=== PATIENT | male | born 1960 | race Caucasian/White ===

== ENCOUNTER → 2016-10-30 | Outpatient (CLI) | payer BC ==
--- NOTE | 2016-10-30 14:03 | CT ---
EXAMINATION TYPE: CT abdomen pelvis w con DATE OF EXAM: 10/30/2016 COMPARISON: NONE HISTORY: Diverticulitis. ab pain,cramping,bloading x [address] DLP: 885.90 mGycm CONTRAST: CT scan of the abdomen and pelvis is performed with Oral Contrast and with IV Contrast, patient injec marjorie with 100 mL of Omnipaque 300. FINDINGS: LUNG BASES-: No visible nodule. No infiltrate. LIVER/GB: No calcified gallstones. Several scattered small hepatic cysts. Biliary tree is of normal caliber. PANCREAS: No inflammation. No distinct mass. SPLEEN: No splenic enlargement. No lesion seen. ADRENALS: No nodule. No thickening. KIDNEYS/BLADDER: No hydronephrosis. No nephrolithiasis. No disctinct renal mass. Urinary bladder g rossly unremarkable. BOWEL: Normal appendix. Normal bowel caliber. Borderline stranding adjacent to the proximal sigmoid colon with adjacent diverticula. This may reflect very mild to borderline diverticulitis. No evidence of perforation. No evidence for abscess. GENITAL ORGANS: No gross abnormality. LYMPH NODES: No greater than 1cm abdominal or pelvic lymph nodes are appreciated. AORTA: No significant abnormality. OSSEOUS STRUCTURES: No significant abnormality is seen. OTHER: No significant additional abnormality is seen. IMPRESSION: 1. Borderline stranding adjacent to the proximal sigmoid colon with adjacent diverticula. This may re flect very mild to borderline diverticulitis.
== END | disposition home or self-care (01) ==
LOC: RADCTMAIN 13:24
PROVIDERS: ATTEND Family Medicine
DX: K57.30 Diverticulosis of large intestine without perforation or abscess without bleeding (principal)
CPT/HCPCS: 74177; Q9967

== ENCOUNTER 2017-08-11 08:26 | Day surgery (SDC) | payer BC ==
[2017-08-06 17:19] VITALS: BMI 29.0
[~2017-08-11 08:26] MED LIST: LACTATED RINGERS 1,000 ML IV SCH
[2017-08-11] MEDS ORDERED: LIDOCAINE 1% 20 ML VIAL (10MG/ML) FOR IV START INTRADERMA ONE (09:05)
[2017-08-11 09:06] VITALS: RESP 18; TEMP 98.3
[2017-08-11] MEDS ORDERED: LIDOCAINE 1% INJ 10MG/ML (20 ML MDV) ONE (09:31)
[2017-08-11] MEDS ORDERED: PROPOFOL 10 MG/ML 20 ML VIAL IV ONE (09:31)
--- NOTE | 2017-08-11 10:00 | P.PCN ---
Date of Procedure: 08/11/17 Procedure(s) Performed: Procedure: Total colonoscopy. Preoperative diagnosis: Screening for neoplasia. Postoperative diagnosis: Sigmoid diverticulosis with no evidence of acute diverticulitis, strictures, polyps or cancer. Preparation: GoLYTELY prep. Sedation: Was provided by anesthesia. Brief clinical history: The patient is a 57-year-old male who is referred for this evaluation for screening for neoplasia age being his risk factor. His prior exam was more than 10 years ago. The patient has no significant abdominal symptoms. He gets occasional left lower quadrant abdominal pain and he believes he had a bout of diverticulitis 4-5 months ago. At this time he has no abdominal complaints, bleeding or anemia. Procedure: With the patient on his left lateral decubitus position and after informed consent and adequate sedation, the perianal area was inspected and it did not show any fissures or fistulas. There were no masses felt on digital rectal examination. The Olympus CFQ 160L video colonoscope was then inserted in the rectum in the usual fashion and advanced to the cecum. There were several diverticular orifices seen scattered in the sigmoid but I saw no evidence of acute diverticulitis or strictures. No polyps or tumors were seen the mucosa appeared healthy. I retroflexed the endoscope in the rectum before the endoscope was withdrawn. The patient tolerated the procedure well. Plan: The patient was reassured. Discussed dietary measures. He will follow up with you as planned and I recommended repeat colonoscopy in 10 years.
[2017-08-11 10:26] VITALS: BP 113/78; PULSE 50
== END 2017-08-11 10:36 | disposition home or self-care (01) ==
LOC: ORWHC2ENDO 08:26
DX: Z12.11 Encounter for screening for malignant neoplasm of colon (principal); K57.30 Diverticulosis of large intestine without perforation or abscess without bleeding; K21.9 Gastro-esophageal reflux disease without esophagitis; Z87.891 Personal history of nicotine dependence; Z79.899 Other long term (current) drug therapy; Z91.09 Other allergy status, other than to drugs and biological substances
CPT/HCPCS: J2001; J2704; G0121; 45378

== ENCOUNTER → 2019-01-27 | Outpatient (CLI) | payer BC ==
--- NOTE | 2019-01-27 10:47 | NM ---
Nuclear medicine hepatobiliary scan. HISTORY: Pain. DOSAGE: The patient received 8 ounces of ensure plus and 5 mCi of Technetium 99m Choletec. FINDINGS: The normal hepatic extraction heterogeneous which may be artifactual. The gallbladder is s een by one minutes. There is biliary to bowel clearance is delayed and not seen at 60 minutes with c ertainty which is a nonspecific finding. Ejection fraction is 76%. IMPRESSION: 1. Ejection fraction of 76% can occasionally be associated with hyperdynamic gallbladder correlate cl inically. 2. Heterogeneous hepatic extraction. Recommend follow-up ultrasound.
== END | disposition home or self-care (01) ==
LOC: RADNMMAIN 06:41
PROVIDERS: ATTEND Internal Medicine Gastroenterology
DX: R10.13 Epigastric pain (principal)
CPT/HCPCS: 78226; A9537

== ENCOUNTER 2019-02-09 11:50 | Emergency (ER) | payer BC ==
[2019-02-09 11:59] VITALS: RESP 18
[2019-02-09] MEDS ORDERED: methylPREDNISolone SOD SUCCI 125 MG/2 ML VIAL IV STA (12:17)
[2019-02-09] MEDS ORDERED: IPRATROPIUM-ALBUTEROL 3 ML NEB INHALATION STA (12:17)
[2019-02-09] MEDS ORDERED: SODIUM CHLORIDE 0.9% 1,000 ML IV STA ×2 (12:17)
--- NOTE | 2019-02-09 12:44 | ED ---
General Adult HPI - General Chief complaint: Shortness of Breath Stated complaint: Pneumonia Time Seen by Provider: 02/09/19 12:08 Source: patient, RN notes reviewed, old records reviewed Mode of arrival: ambulatory Limitations: no limitations - History of Present Illness Initial comments: 4-year-old male presents today for cough congestion shortness of breath. Patient reports that he isn't having worsening cough since February 01. Patient states that he was initially started on amoxicillin. 3 days later was switched to Levaquin. He has been on that for 4 days but continues to have a cough today. The Patient states that he's had no recorded fevers or chills. He does reports a productive cough. Nonsmoker. - Related Data Home Medications Medication Instructions Recorded Confirmed Fexofenadine HCl [Rosa Isela Allergy] 180 mg PO DAILY PRN 08/06/17 08/11/17 Ranitidine HCl [Zantac] 150 mg PO BID PRN 08/06/17 08/11/17 Previous Rx's Medication Instructions Recorded Albuterol Inhaler [Ventolin Hfa 1 - 2 puff INHALATION RT-Q6H PRN 02/09/19 Inhaler] #1 inhaler predniSONE 10 mg PO DAILY #15 tab 02/09/19 Allergies Allergy/AdvReac Type Severity Reaction Status Date / Time weed pollen Allergy RUNNY EYES Verified 08/11/17 08:56 AND SNEEZING Review of Systems ROS Statement: Those systems with pertinent positive or pertinent negative responses have been documented in the HPI. ROS Other: All systems not noted in ROS Statement are negative. Past Medical History Past Medical History: GERD/Reflux Additional Past Medical History / Comment(s): seasonal allergies, hx. diverticulitis, occasional bloating, hx. of spontaneous pneumothorax when younger-surg. to repair, hx. bronchitis, hypoglycemia History of Any Multi-Drug Resistant Organisms: None Reported Past Surgical History: Tonsillectomy Additional Past Surgical History / Comment(s): cyst removed from testicle, repair of pneumothorax x2, colonoscopy Past Anesthesia/Blood Transfusion Reactions: No Reported Reaction Past Psychological History: No Psychological Hx Reported Smoking Status: Former smoker Past Alcohol Use History: Rare Past Drug Use History: None Reported - Past Family History Mother Family Medical History: Cancer Father Family Medical History: Cancer General Exam - General Exam Comments Initial Comments: 4-year-old male. Alert and oriented 3. No distress. Limitations: no limitations General appearance: alert, in no apparent distress Head exam: Present: atraumatic, normocephalic, normal inspection Eye exam: Present: normal appearance, PERRL, EOMI. Absent: scleral icterus, conjunctival injection, periorbital swelling ENT exam: Present: normal exam, mucous membranes moist Neck exam: Present: normal inspection. Absent: tenderness, meningismus, lymphadenopathy Respiratory exam: Present: normal lung sounds bilaterally, wheezes. Absent: respiratory distress, rales, rhonchi, stridor Cardiovascular Exam: Present: regular rate, normal rhythm, normal heart sounds. Absent: systolic murmur, diastolic murmur, rubs, gallop, clicks GI/Abdominal exam: Present: soft, normal bowel sounds. Absent: distended, tenderness, guarding, rebound, rigid Neurological exam: Present: alert, oriented X3, CN II-XII intact Psychiatric exam: Present: normal affect, normal mood Skin exam: Present: warm, dry, intact, normal color. Absent: rash Course Vital Signs 02/09/19 02/09/19 02/09/19 11:55 12:24 12:33 Temperature 97.7 F Pulse Rate 73 61 66 Respiratory 18 Rate Blood Pressure 147/97 O2 Sat by Pulse 99 Oximetry 02/09/19 02/09/19 13:00 13:30 Temperature Pulse Rate 64 65 Respiratory 18 18 Rate Blood Pressure 128/92 135/82 O2 Sat by Pulse 97 96 Oximetry EKG Findings - EKG Comments: EKG Findings:: EKG shows sinus regarding, otherwise normal EKG. Ventricular rate 58 bpm. Panel was 180 ms. QS duration 76 ms. QT QTc is 420/414 ms. Medical Decision Making - Medical Decision Making Patient is a 4-year-old male presents today with cough congestion. Patient's vital signs are stable. Afebrile. He's been on Levaquin for the past few days for a cough. This time his lungs did show some mild wheezing. Given DuoNeb and slight ventral. This time patient's labwork was unremarkable. Chest x-ray shows no pneumonia and underlying emphysema changes and postsurgical changes. He did have history of left lung surgery for spontaneous or lethargic and his younger. Patient this time will continue Levaquin. Discussed using prednisone orally as well as DuoNeb treatments at home. Patient is agreeable to discharge and close follow up with his primary care doctor. All questions were answered. - Lab Data Result diagrams: 02/09/19 13:00 02/09/19 13:00 Lab Results 02/09/19 02/09/19 02/09/19 Range/Units 13:00 13:00 13:00 WBC 10.1 (3.8-10.6) k/uL RBC 4.93 (4.30-5.90) m/uL Hgb 15.2 (13.0-17.5) gm/dL Hct 45.9 (39.0-53.0) % MCV 93.0 (80.0-100.0) fL MCH 30.9 (25.0-35.0) pg MCHC 33.2 (31.0-37.0) g/dL RDW 12.0 (11.5-15.5) % Plt Count 266 (150-450) k/uL Neutrophils % 74 % Lymphocytes % 15 % Monocytes % 6 % Eosinophils % 1 % Basophils % 2 % Neutrophils # 7.4 (1.3-7.7) k/uL Lymphocytes # 1.6 (1.0-4.8) k/uL Monocytes # 0.6 (0-1.0) k/uL Eosinophils # 0.1 (0-0.7) k/uL Basophils # 0.2 (0-0.2) k/uL PT 11.2 (9.0-12.0) sec INR 1.1 (<1.2) APTT 25.4 (22.0-30.0) sec Sodium 138 (137-145) mmol/L Potassium 4.5 (3.5-5.1) mmol/L Chloride 105 (98-107) mmol/L Carbon Dioxide 25 (22-30) mmol/L Anion Gap 8 mmol/L BUN 14 (9-20) mg/dL Creatinine 0.73 (0.66-1.25) mg/dL Est GFR (CKD-EPI)AfAm >90 (>60 ml/min/1.73 sqM) Est GFR (CKD-EPI)NonAf >90 (>60 ml/min/1.73 sqM) Glucose 106 H (74-99) mg/dL Calcium 9.9 (8.4-10.2) mg/dL Magnesium 2.0 (1.6-2.3) mg/dL Total Bilirubin 0.9 (0.2-1.3) mg/dL AST 30 (17-59) U/L ALT 17 (4-49) U/L Alkaline Phosphatase 72 (38-126) U/L Troponin I (0.000-0.034) ng/mL Total Protein 7.3 (6.3-8.2) g/dL Albumin 4.6 (3.5-5.0) g/dL 02/09/19 Range/Units 13:00 WBC (3.8-10.6) k/uL RBC (4.30-5.90) m/uL Hgb (13.0-17.5) gm/dL Hct (39.0-53.0) % MCV (80.0-100.0) fL MCH (25.0-35.0) pg MCHC (31.0-37.0) g/dL RDW (11.5-15.5) % Plt Count (150-450) k/uL Neutrophils % % Lymphocytes % % Monocytes % % Eosinophils % % Basophils % % Neutrophils # (1.3-7.7) k/uL Lymphocytes # (1.0-4.8) k/uL Monocytes # (0-1.0) k/uL Eosinophils # (0-0.7) k/uL Basophils # (0-0.2) k/uL PT (9.0-12.0) sec INR (<1.2) APTT (22.0-30.0) sec Sodium (137-145) mmol/L Potassium (3.5-5.1) mmol/L Chloride (98-107) mmol/L Carbon Dioxide (22-30) mmol/L Anion Gap mmol/L BUN (9-20) mg/dL Creatinine (0.66-1.25) mg/dL Est GFR (CKD-EPI)AfAm (>60 ml/min/1.73 sqM) Est GFR (CKD-EPI)NonAf (>60 ml/min/1.73 sqM) Glucose (74-99) mg/dL Calcium (8.4-10.2) mg/dL Magnesium (1.6-2.3) mg/dL Total Bilirubin (0.2-1.3) mg/dL AST (17-59) U/L ALT (4-49) U/L Alkaline Phosphatase (38-126) U/L Troponin I <0.012 (0.000-0.034) ng/mL Total Protein (6.3-8.2) g/dL Albumin (3.5-5.0) g/dL - Radiology Data Radiology results: report reviewed Chest x-ray shows mild hyperinflation may reflect underlying emphysema. Surgical changes in the lung volume loss in the left upper lobe. No definite acute process. Disposition Clinical Impression: Bronchitis Disposition: HOME SELF-CARE Condition: Good Instructions (If sedation given, give patient instructions): Acute Bronchitis (ED) Additional Instructions: Patient advised to use inhalers as prescribed and follow-up with her primary care doctor in the next 1-2 days. Continue Levaquin. Follow-up with PCP. Prescriptions: predniSONE 10 mg PO DAILY #15 tab Albuterol Inhaler [Ventolin Hfa Inhaler] 1 - 2 puff INHALATION RT-Q6H PRN #1 inhaler PRN Reason: Shortness Of Breath Is patient prescribed a controlled substance at d/c from ED?: No Referrals: Kale Wing MD [Primary Care Provider] - 1-2 days Time of Disposition: 14:39
--- NOTE | 2019-02-09 13:30 | XR ---
EXAMINATION TYPE: XR chest 2V DATE OF EXAM: 02/09/2019 COMPARISON: None HISTORY: 58-year-old male cough, shortness breath, difficulty breathing TECHNIQUE: PA and lateral views FINDINGS: Heart normal size. Mild elongation thoracic aorta. Stable line at the medial left upper lobe and juxt aphrenic peak sign at the left hemidiaphragm compatible with upper lobe volume loss. No consolidation or pleural effusion. Mild hyperinflation. IMPRESSION: Mild hyperinflation may reflect underlying emphysema. Surgical changes and volume loss in the left up per lobe. No definite acute process.
[2019-02-09 13:41] LABS: Basophils # (A) 0.2 k/uL (0-0.2); Basophils % (A) 2 %; Eosinophils # (A) 0.1 k/uL (0-0.7); Eosinophils % (A) 1 %; HCT 45.9 % (39.0-53.0); HGB 15.2 gm/dL (13.0-17.5); Lymphocytes # (A) 1.6 k/uL (1.0-4.8); Lymphocytes % (A) 15 %; MCH 30.9 pg (25.0-35.0); MCHC 33.2 g/dL (31.0-37.0); Mean Platelet Volume 6.9; Monocytes # (A) 0.6 k/uL (0-1.0); Monocytes % (A) 6 %; Neutrophils # (A) 7.4 k/uL (1.3-7.7); Neutrophils % (A) 74 %; Platelet Count 266 k/uL (150-450); RBC 4.93 m/uL (4.30-5.90); WBC 10.1 k/uL (3.8-10.6)
[2019-02-09 13:49] LABS: ALT 17 U/L (4-49); AST 30 U/L (17-59); African American GFR (CKD) >90 (>60 ml/min/1.73 sqM); Albumin 4.6 g/dL (3.5-5.0); Alkaline Phosphatase 72 U/L (38-126); Anion Gap 8 mmol/L; Blood Urea Nitrogen 14 mg/dL (9-20); Calcium 9.9 mg/dL (8.4-10.2); Carbon Dioxide 25 mmol/L (22-30); Chloride 105 mmol/L (98-107); Glucose 106 mg/dL (74-99); Non-African American GFR(CKD) >90 (>60 ml/min/1.73 sqM); Sodium 138 mmol/L (137-145); Total Bilirubin 0.9 mg/dL (0.2-1.3); Total Protein 7.3 g/dL (6.3-8.2)
[2019-02-09 13:58] LABS: Potassium 4.5 mmol/L (3.5-5.1)
[2019-02-09 14:02] LABS: INR 1.1 (<1.2); Partial Thromboplastin Time 25.4 sec (22.0-30.0); Prothrombin Time 11.2 sec (9.0-12.0)
[2019-02-09 15:01] VITALS: BP 122/84; PULSE 62; TEMP 97.6
== END 2019-02-09 14:59 | disposition home or self-care (01) ==
LOC: EC 11:50
DX: J40 Bronchitis, not specified as acute or chronic (principal); Z98.890 Other specified postprocedural states; Z87.09 Personal history of other diseases of the respiratory system; Z87.891 Personal history of nicotine dependence; Z91.048 Other nonmedicinal substance allergy status
CPT/HCPCS: 99285; 96374; 96361 ×2; 36415; 94640; 93005; 80053; 83735; 84484; 85025; 85610; 85730; 87040; 71046; J2930

== ENCOUNTER → 2020-06-22 | Outpatient (CLI) | payer BC ==
--- NOTE | 2020-06-22 16:24 | CT ---
EXAMINATION TYPE: CT chest w con DATE OF EXAM: 06/22/2020 COMPARISON: None HISTORY: Intermitten chest pain x4-[address] DLP: 304.4 mGycm Automated exposure control for dose reduction was used. CONTRAST: Performed with IV Contrast, patient injected with 100ml mL of Isovue 300. Images obtained from the thoracic inlet to the diaphragm with IV contrast. The heart size is normal. There is no pericardial effusion. There is no pleural effusion. There are no hilar masses. There is n o mediastinal adenopathy. There is minimal atheromatous change in the thoracic aorta. There is 4.2 cm aneurysm of the ascending aorta. Thoracic vertebra have normal alignment. There is no compression fracture. Sternum is intact There are mild emphysematous changes at the lung apices. There is minimal pleural thickening at the l mary lou apices. There is no evidence of a pulmonary mass. There is minimal reticular and nodular density in the lingula left upper lobe. This is likely inflammatory. I see no suspicious pulmonary mass. The upper abdominal soft tissues show 1 cm cyst in the superior right lobe of the liver. IMPRESSION: Mild emphysema. 4.2 cm thoracic aortic aneurysm. No dissection. No evidence of pulmonary embolism. No suspicious pulmonary mass.
== END | disposition home or self-care (01) ==
LOC: RADCTMAIN 15:28
PROVIDERS: ATTEND Internal Medicine Critical Care Medicine
DX: J43.9 Emphysema, unspecified (principal); I71.2 Thoracic aortic aneurysm, without rupture
CPT/HCPCS: 71260; Q9967

== ENCOUNTER → 2021-04-17 | Outpatient (CLI) | payer BC ==
--- NOTE | 2021-04-17 08:14 | CT ---
EXAMINATION TYPE: CT angio chest DATE OF EXAM: 04/17/2021 COMPARISON: 06/22/2020 HISTORY: thoracic aortic aneurysm CT DLP: 815.6 mGycm CONTRAST: CTA thoracic aorta with 3-D reconstruction is performed and with IV Contrast, patient injected with 1 00 mL of Isovue 370. Contrast CTA of the thoracic aorta was performed from the lung apex through the upper abdomen. 3D re construction imaging obtained at a separate workstation. CT Chest: THORACIC AORTA: Ascending thoracic aortic aneurysm measuring 4.3 cm in AP dimension versus prior coco urement of 4.2 cm. Mild atheromatous changes seen. There is no evidence for dissection or periaortic collection. LUNGS: The lungs are clear and free of infiltrate or atelectasis. No pulmonary nodule or mass is det ected. No pleural effusion or CT evidence of interstitial lung disease. MEDIASTINUM: No evidence for mediastinal hematoma. The heart is not enlarged. No evidence for med iastinal mass or adenopathy. Small hiatal hernia noted. HILAR STRUCTURES: No evidence for mass. No hilar adenopathy is appreciated. OTHER: No significant abnormality. IMPRESSION- Ascending thoracic aortic aneurysm measuring 4.3 cm in AP dimension versus prior measurement of 4.2 c m.
== END | disposition home or self-care (01) ==
LOC: RADCTMAIN 06:51
PROVIDERS: ATTEND Family Medicine
DX: I71.2 Thoracic aortic aneurysm, without rupture (principal)
CPT/HCPCS: 71275; Q9967

== ENCOUNTER → 2021-06-10 | Outpatient (CLI) | payer BC ==
--- NOTE | 2021-06-11 17:58 | CA ---
Transthoracic Echo Report Name: Yunier Ng Age: 60 Gender: M : 1960 Exam Date: 06/10/2021 14:59 Exam Location: [facility] Ht (in): 71 Wt (lb): 210 Ordering Physician: Talon Gardner MD Attending/Referring Phys: Volcanology Teacher Judi Shepard RDCS Procedure CPT: Indications: I25.3 Cardiac Hx: Technical Quality: Good Contrast 1: Total Dose (mL): Contrast 2: Total Dose (mL): MEASUREMENTS (Male / Female) Normal Values 2D ECHO LV Diastolic Diameter PLAX 5.0 cm 4.2 - 5.9 / 3.9 - 5.3 cm LV Systolic Diameter PLAX 3.3 cm IVS Diastolic Thickness 1.0 cm 0.6 - 1.0 / 0.6 - 0.9 cm LVPW Diastolic Thickness 1.1 cm 0.6 - 1.0 / 0.6 - 0.9 cm LV Relative Wall Thickness 0.4 RV Internal Dim ED PLAX 2.5 cm LA Volume 30.5 cm 18 - 58 / 22 - 52 cm M-MODE Aortic Root Diameter MM 4.3 cm LA Systolic Diameter MM 2.5 cm LA Ao Ratio MM 0.6 MV E Point Septal Separation 1.3 cm AV Cusp Separation MM 2.5 cm DOPPLER AV Peak Velocity 121.5 cm/s AV Peak Gradient 5.9 mmHg MV Area PHT 2.7 cm MR Peak Velocity 89.6 cm/s MR Peak Gradient 3.2 mmHg Mitral E Point Velocity 58.4 cm/s Mitral A Point Velocity 83.5 cm/s Mitral E to A Ratio 0.7 MV Deceleration Time 281.9 ms MV E' Velocity 4.7 cm/s Mitral E to MV E' Ratio 12.3 TR Peak Velocity 156.3 cm/s TR Peak Gradient 9.8 mmHg Right Ventricular Systolic Press 14.1 mmHg FINDINGS Left Ventricle Normal left ventricular size, wall thickness, systolic function with no obvious regional wall motion abnormalities. Normal left ventricular diastolic filling pattern for age. The ejection fraction is visually estimated at 55-60 %. Right Ventricle The right ventricle is normal in size and function. Right Atrium The right atrium is normal in size. Left Atrium The left atrium is normal in size. Mitral Valve Structurally normal mitral valve without significant stenosis or prolapse. There is a trace of mitral regurgitation. Aortic Valve Structurally normal aortic valve without significant sclerosis or stenosis. There is no aortic regurgitation. Tricuspid Valve Structurally normal tricuspid valve without significant stenosis. Pulmonary artery systolic pressure is normal. Trace tricuspid regurgitation. Pulmonic Valve Structurally normal pulmonic valve without significant stenosis. There is no pulmonic regurgitation. Pericardium Normal pericardium without effusion. Aorta Aortic dilatation measuring 4.3 cm. CONCLUSIONS Normal LV size and systolic function. Mild mitral and tricuspid insufficiency. No pericardial effusion Previewed by: Dr. Nj Saunders MD (Electronically Signed) Final Date: 11 June 2021 17:57
== END | disposition home or self-care (01) ==
LOC: RADECHMAIN 14:49
PROVIDERS: ATTEND Thoracic Surgery (Cardiothoracic Vascular Surgery)
DX: I08.1 Rheumatic disorders of both mitral and tricuspid valves (principal)
CPT/HCPCS: 93306

== ENCOUNTER → 2023-05-01 | Outpatient (CLI) | payer BC ==
--- NOTE | 2023-05-01 10:21 | CT ---
Exam: CT Angiography of the Chest. Date: 05/01/2023. Comparison: Multiple previous most recent from 04/21/2022. History: Follow-up for aneurysm. Technique: CT examination of the chest was performed following the intravenous administration of 100 mL of Isovue-370. CT dose lowering techniques were used, to include: automated exposure control, adju stment for patient size, and/or use of iterative reconstruction. FINDINGS: Mediastinum and Bess: There is no axillary, mediastinal or hilar lymphadenopathy. Pleural and Pericardial spaces: There are no pleural or pericardial effusions. Upper Abdomen: The visualized upper abdomen is unremarkable. Cardiovascular: There is dilation of ascending thoracic aorta up to 4.4 cm in diameter. There is no e vidence of aortic dissection. Pulmonary Artery: There are no filling defects in the pulmonary arteries. Lung Parenchyma and Airways: There is mild diffuse centrilobular emphysema. Bones: No fracture or aggressive osseous lesion. IMPRESSION: 1. Unchanged dilation of the ascending thoracic aorta up to 4.4 cm. 2. No evidence of aortic dissection. 3. No evidence of pneumonia, pleural or pericardial effusions. 4. Unchanged small pulmonary nodules. 5. Unchanged emphysema.
== END | disposition home or self-care (01) ==
LOC: RADCTMAIN 09:23
PROVIDERS: ATTEND Thoracic Surgery (Cardiothoracic Vascular Surgery)
DX: J43.2 Centrilobular emphysema (principal); R91.8 Other nonspecific abnormal finding of lung field; I71.20 Thoracic aortic aneurysm, without rupture, unspecified
CPT/HCPCS: 71275; Q9967

== ENCOUNTER 2023-12-22 11:09 | Emergency (ER) | payer MEDICARE, BC ==
--- NOTE | 2023-12-22 11:52 | ED ---
General Adult HPI - General Chief complaint: Dizziness Stated complaint: dizzy/hypertension Time Seen by Provider: 12/22/23 11:36 Source: patient, family, EMS, RN notes reviewed Mode of arrival: EMS Limitations: no limitations - History of Present Illness Initial comments: Patient is a 63-year-old male presenting to the emergency department with lightheadedness. Onset of symptoms was prior to arrival. Patient was driving and suddenly felt extremely lightheaded. 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 Patient did go to his doctor's office and blood pressure was high and he was advised to come to the emergency department, 180/120. Patient states lightheadedness has near resolved and is only mild at this time. Patient denies any confusion or speech problems. No weakness. No history of similar symptoms previously. - Related Data Home Medications Medication Instructions Recorded Confirmed ALPRAZolam [Xanax] 0.25 mg PO QID PRN 12/22/23 12/22/23 Albuterol Inhaler [Ventolin Hfa 2 puff INHALATION RT-Q6H PRN 12/22/23 12/22/23 Inhaler] Ascorbic Acid [Vitamin C] 1,000 mg PO DAILY 12/22/23 12/22/23 Aspirin EC [Ecotrin Low Dose] 81 mg PO DAILY 12/22/23 12/22/23 Cholecalciferol [Vitamin D3 (25 25 mcg PO DAILY 12/22/23 12/22/23 Mcg = 1000 Iu)] Diclofenac Sodium [Voltaren] 75 mg PO BID PRN 12/22/23 12/22/23 Dicyclomine [Bentyl] 10 - 20 mg PO Q6H PRN 12/22/23 12/22/23 Famotidine [Pepcid] 20 mg PO DAILY PRN 12/22/23 12/22/23 Fluticasone Nasal [place] [Flonase 1 spray EA NOSTRIL DAILY PRN 12/22/23 12/22/23 Nasal [place]] Fluticasone/Umeclidin/Vilanter 1 puff INHALATION RT-DAILY 12/22/23 12/22/23 [Trelegy Ellipta 200-62.5-25] Indomethacin [Indocin] 50 mg PO TID PRN 12/22/23 12/22/23 Multivit-Min/FA/Lycopen/Lutein 1 tab PO DAILY 12/22/23 12/22/23 [Centrum Silver Tablet] Omeprazole [PriLOSEC] 40 mg PO DAILY PRN 12/22/23 12/22/23 Previous Rx's Medication Instructions Recorded amLODIPine [Norvasc] 5 mg PO DAILY #14 tab 12/22/23 Allergies Allergy/AdvReac Type Severity Reaction Status Date / Time weed pollen Allergy RUNNY EYES Verified 12/22/23 12:06 AND SNEEZING Review of Systems ROS Statement: Those systems with pertinent positive or pertinent negative responses have been documented in the HPI. ROS Other: All systems not noted in ROS Statement are negative. Constitutional: Denies: fever Eyes: Denies: eye pain ENT: Denies: ear pain Respiratory: Denies: cough, dyspnea Cardiovascular: Denies: chest pain Endocrine: Denies: fatigue Gastrointestinal: Denies: abdominal pain Neurological: Denies: headache, weakness Past Medical History Past Medical History: COPD, GERD/Reflux Additional Past Medical History / Comment(s): seasonal allergies, hx. diver ticulitis, occasional bloating, hx. of spontaneous pneumothorax when younger- surg. to repair, hx. bronchitis, hypoglycemia, gout, arthritis History of Any Multi-Drug Resistant Organisms: None Reported Past Surgical History: Tonsillectomy Additional Past Surgical History / Comment(s): cyst removed from testicle, repair of pneumothorax x2, colonoscopy, fused vertabrea Past Anesthesia/Blood Transfusion Reactions: No Reported Reaction Past Psychological History: Anxiety Smoking Status: Former smoker Past Alcohol Use History: Rare Past Drug Use History: None Reported - Past Family History Mother Family Medical History: Cancer Father Family Medical History: Cancer General Exam Limitations: no limitations General appearance: alert, in no apparent distress Head exam: Present: normocephalic Eye exam: Present: normal appearance, PERRL, EOMI Neck exam: Present: normal inspection. Absent: tenderness Respiratory exam: Present: normal lung sounds bilaterally Cardiovascular Exam: Present: regular rate, normal rhythm Expanded Peripheral pulses: 2+: Radial (R), Radial (L), Dorsalis Pedis (R), Dorsalis Pedis (L) GI/Abdominal exam: Present: soft. Absent: tenderness Extremities exam: Present: normal inspection Neurological exam: Present: alert, CN II-XII intact. Absent: motor sensory deficit Expanded Neurological exam: Present: protecting the airway Speech: Present: fluid speech Cranial nerves: EOM's Intact: Normal Motor strength exam: RUE: 5, LUE: 5, RLE: 5, LLE: 5 Eye Response: (4) open spontaneously Motor Response: (6) obeys commands Verbal Response: (5) oriented Psychiatric exam: Present: normal affect, normal mood Skin exam: Present: normal color Course Vital Signs 12/22/23 12/22/23 12/22/23 11:10 12:30 13:50 Temperature 97.7 F 97.4 F L 97.0 F L Pulse Rate 61 60 60 Respiratory 20 16 16 Rate Blood Pressure 157/104 146/92 158/99 O2 Sat by Pulse 98 97 98 Oximetry 12/22/23 14:29 Temperature Pulse Rate 54 L Respiratory 18 Rate Blood Pressure 155/96 O2 Sat by Pulse 98 Oximetry EKG Findings - EKG Results: EKG: interpreted by LOULOU, sinus rhythm, normal axis, normal QRS, normal ST/T EKG shows: bradycardia Medical Decision Making - Medical Decision Making Was pt. sent in by a medical professional or institution (, PA, BOX CLOSING MACHINE OPERATOR, urgent care, hospital, or longterm...) When possible be specific @ -Patient was sent in by primary care physician Did you speak to anyone other than the patient for history (EMS, parent, family, police, friend...)? What history was obtained from this source @ - is present and helps provide history including blood pressure reading Did you review nursing and triage notes (agree or disagree)? Why? @ -I reviewed and agree with nursing and triage notes Were old charts reviewed (outside hosp., previous admission, EMS record, old EKG, old radiological studies, urgent care reports/EKG's, longterm records)? Report findings @ -No old charts were reviewed Differential Diagnosis (chest pain, altered mental status, abdominal pain women, abdominal pain men, vaginal bleeding, weakness, fever, dyspnea, syncope, headache, dizziness, GI bleed, back pain, seizure, CVA, palpatations, mental he alth, musculoskeletal)? @ -Differential Dizziness: Benign paroxysmal positional Vertigo, Meniere's disease, otitis media, acoustic neuroma, vertebrobasilar insufficiency, cerebellar stroke, encephalitis, hypovolemic, arrhythmia, coronary artery syndrome, anemia, this is not meant to be an all-inclusive list EKG interpreted by me (3pts min.). @ -As above X-rays interpreted by me (1pt min.). @ -Chest x-ray shows no acute process CT interpreted by me (1pt min.). @ -CT scan of the brain does not reveal acute abnormality U/S interpreted by me (1pt. min.). @ -None done What testing was considered but not performed or refused? (CT, X-rays, U/S, labs)? Why? @ -None What meds were considered but not given or refused? Why? @ -None Did you discuss the management of the patient with other professionals (professionals i.e. Dr., PA, BOX CLOSING MACHINE OPERATOR, lab, RT, psych nurse, social work administrator, clinical nursing assistant, teacher, police officer crime prevention, nurse outreach case manager)? Give summary @ -No Was smoking cessation discussed for >3mins.? @ -No Was critical care preformed (if so, how long)? @ -No Were there social determinants of health that impacted care today? How? (Homelessness, low income, unemployed, alcoholism, drug addiction, transp ortation, low edu. Level, literacy, decrease access to med. care, fpc, rehab)? @ -No Was there de-escalation of care discussed even if they declined (Discuss DNR or withdrawal of care, Hospice)? DNR status @ -No What co-morbidities impacted this encounter? (DM, HTN, Smoking, COPD, CAD, Cancer, CVA, ARF, Chemo, Hep., AIDS, mental health diagnosis, sleep apnea, morbid obesity)? @ -None Was patient admitted / discharged? Hospital course, mention meds given and route, prescriptions, significant lab abnormalities, going to OR and other pertinent info. @ -Patient presents with episode of lightheadedness with hypertension. Blood pressure has improved in the emergency department. Patient feeling much better and is able to ambulate without any difficulty. Patient will be discharged with recommended follow-up with his primary care physician. Patient will be provided antihypertensive in the meantime until follow-up. Patient updated and does demonstrate understanding Undiagnosed new problem with uncertain prognosis? @ -No Drug Therapy requiring intensive monitoring for toxicity (Heparin, Nitro, Insulin, Cardizem)? @ -No Were any procedures done? @ -No Diagnosis/symptom? @ -Lightheadedness, hypertension Acute, or Chronic, or Acute on Chronic? @ -Acute, acute Uncomplicated (without systemic symptoms) or Complicated (systemic symptoms)? @ -Default Side effects of treatment? @ -No Exacerbation, Progression, or Severe Exacerbation? @ -No Poses a threat to life or bodily function? How? (Chest pain, USA, MD, pneumonia, PE, COPD, DKA, ARF, appy, cholecystitis, CVA, Diverticulitis, Homicidal, Suicidal, threat to staff... and all critical care pts) @ -No - Lab Data Result diagrams: 12/22/23 12:30 12/22/23 12:30 Lab Results 12/22/23 12/22/23 12/22/23 Range/Units 12:30 12:30 12:30 WBC 9.9 (3.8-10.6) k/uL RBC 4.45 (4.30-5.90) m/uL Hgb 13.2 (13.0-17.5) gm/dL Hct 41.2 (39.0-53.0) % MCV 92.6 (80.0-100.0) fL MCH 29.8 (25.0-35.0) pg MCHC 32.1 (31.0-37.0) g/dL RDW 13.5 (11.5-15.5) % Plt Count 189 (150-450) k/uL MPV 6.8 Neutrophils % 83 % Lymphocytes % 8 % Monocytes % 6 % Eosinophils % 2 % Basophils % 1 % Neutrophils # 8.2 H (1.3-7.7) k/uL Lymphocytes # 0.8 L (1.0-4.8) k/uL Monocytes # 0.6 (0-1.0) k/uL Eosinophils # 0.2 (0-0.7) k/uL Basophils # 0.1 (0-0.2) k/uL PT 11.2 (10.0-12.5) sec INR 1.0 (<1.2) APTT 24.4 (22.0-30.0) sec Sodium 138 (137-145) mmol/L Potassium 4.3 (3.5-5.1) mmol/L Chloride 107 (98-107) mmol/L Carbon Dioxide 24 (22-30) mmol/L Anion Gap 7 mmol/L BUN 17 (9-20) mg/dL Creatinine 0.83 (0.66-1.25) mg/dL Est GFR (CKD-EPI)AfAm >90 (>60 ml/min/1.73 sqM) Est GFR (CKD-EPI)NonAf >90 (>60 ml/min/1.73 sqM) Glucose 104 H (74-99) mg/dL Plasma Lactic Acid Yoel (0.7-2.0) mmol/L Calcium 9.5 (8.4-10.2) mg/dL Total Bilirubin 0.5 (0.2-1.3) mg/dL AST 22 (17-59) U/L ALT 21 (4-49) U/L Alkaline Phosphatase 77 (38-126) U/L Troponin I (0.000-0.034) ng/mL Total Protein 6.6 (6.3-8.2) g/dL Albumin 4.0 (3.5-5.0) g/dL 12/22/23 12/22/23 Range/Units 12:30 12:30 WBC (3.8-10.6) k/uL RBC (4.30-5.90) m/uL Hgb (13.0-17.5) gm/dL Hct (39.0-53.0) % MCV (80.0-100.0) fL MCH (25.0-35.0) pg MCHC (31.0-37.0) g/dL RDW (11.5-15.5) % Plt Count (150-450) k/uL MPV Neutrophils % % Lymphocytes % % Monocytes % % Eosinophils % % Basophils % % Neutrophils # (1.3-7.7) k/uL Lymphocytes # (1.0-4.8) k/uL Monocytes # (0-1.0) k/uL Eosinophils # (0-0.7) k/uL Basophils # (0-0.2) k/uL PT (10.0-12.5) sec INR (<1.2) APTT (22.0-30.0) sec Sodium (137-145) mmol/L Potassium (3.5-5.1) mmol/L Chloride (98-107) mmol/L Carbon Dioxide (22-30) mmol/L Anion Gap mmol/L BUN (9-20) mg/dL Creatinine (0.66-1.25) mg/dL Est GFR (CKD-EPI)AfAm (>60 ml/min/1.73 sqM) Est GFR (CKD-EPI)NonAf (>60 ml/min/1.73 sqM) Glucose (74-99) mg/dL Plasma Lactic Acid Yoel 1.3 (0.7-2.0) mmol/L Calcium (8.4-10.2) mg/dL Total Bilirubin (0.2-1.3) mg/dL AST (17-59) U/L ALT (4-49) U/L Alkaline Phosphatase (38-126) U/L Troponin I <0.012 (0.000-0.034) ng/mL Total Protein (6.3-8.2) g/dL Albumin (3.5-5.0) g/dL Disposition Clinical Impression: Lightheadedness, Hypertension Disposition: HOME SELF-CARE Condition: Stable Instructions (If sedation given, give patient instructions): Dizziness (ED) Additional Instructions: Please do follow-up with your primary care physician in the next couple of days for recheck. Prescription for blood pressure medicine sent to your pharmacy until you are able to follow-up with your doctor. Return for increased blood pressure, dizziness, passing out, confusion, weakness, worsening symptoms or any other concerns. Prescriptions: amLODIPine [Norvasc] 5 mg PO DAILY #14 tab Is patient prescribed a controlled substance at d/c from ED?: No Referrals: Kale Wing MD [Primary Care Provider] - 1-2 days Time of Disposition: 14:46
[2023-12-22] MEDS: MECLIZINE 12.5 MG TAB PO STA (12:22)
[2023-12-22 12:46] LABS: Basophils # (A) 0.1 k/uL (0-0.2); Basophils % (A) 1 %; Eosinophils # (A) 0.2 k/uL (0-0.7); Eosinophils % (A) 2 %; HCT 41.2 % (39.0-53.0); HGB 13.2 gm/dL (13.0-17.5); Lymphocytes # (A) 0.8 k/uL (1.0-4.8); Lymphocytes % (A) 8 %; MCH 29.8 pg (25.0-35.0); MCHC 32.1 g/dL (31.0-37.0); MCV 92.6 fL (80.0-100.0); Mean Platelet Volume 6.8; Monocytes # (A) 0.6 k/uL (0-1.0); Monocytes % (A) 6 %; Neutrophils # (A) 8.2 k/uL (1.3-7.7); Neutrophils % (A) 83 %; Platelet Count 189 k/uL (150-450); RBC 4.45 m/uL (4.30-5.90); RDW 13.5 % (11.5-15.5); WBC 9.9 k/uL (3.8-10.6)
[2023-12-22 12:49] LABS: ALT 21 U/L (4-49); AST 22 U/L (17-59); African American GFR (CKD) >90 (>60 ml/min/1.73 sqM); Alkaline Phosphatase 77 U/L (38-126); Anion Gap 7 mmol/L; Blood Urea Nitrogen 17 mg/dL (9-20); Calcium 9.5 mg/dL (8.4-10.2); Carbon Dioxide 24 mmol/L (22-30); Chloride 107 mmol/L (98-107); Glucose 104 mg/dL (74-99); Non-African American GFR(CKD) >90 (>60 ml/min/1.73 sqM); Potassium 4.3 mmol/L (3.5-5.1); Sodium 138 mmol/L (137-145); Total Bilirubin 0.5 mg/dL (0.2-1.3); Total Protein 6.6 g/dL (6.3-8.2)
--- NOTE | 2023-12-22 12:59 | XR ---
EXAMINATION TYPE: XR chest 2V DATE OF EXAM: 12/22/2023 COMPARISON: 02/09/2019 CLINICAL INDICATION: Male, 63 years old with history of Weakness; , TECHNIQUE: XR chest 2V views of the chest. FINDINGS: Postsurgical changes. Heart mildly enlarged and there is emphysematous changes. Pleural tenting and r eflection along the left lung base stable from prior exam of 2019. Atherosclerotic change aorta. No pneumothorax or pleural effusion. Arthropathy of the shoulders and degenerative change of the spin e. IMPRESSION: 1. No acute process. [facility], , 12/22/2023 12:57 PM
[2023-12-22 13:01] LABS: Partial Thromboplastin Time 24.4 sec (22.0-30.0); Prothrombin Time 11.2 sec (10.0-12.5)
--- NOTE | 2023-12-22 13:20 | CT ---
EXAMINATION TYPE: CT brain wo con CT DLP: 1168.5 mGycm, Automated exposure control for dose reduction was used. DATE OF EXAM: 12/22/2023 1:05 PM COMPARISON: None. CLINICAL INDICATION:Male, 63 years old with history of weakness, Dizziness TECHNIQUE: Brain: Multiple axial CT images of the brain were obtained without IV contrast. . Coronal and sagitta l reformats reviewed. FINDINGS: Brain: Extra-axial spaces: No abnormal extra-axial fluid collections. Ventricular system: Within normal limits Cerebral parenchyma: No acute intraparenchymal hemorrhage or mass effect. The romero-white junction is well differentiated. Scattered hypoattenuating areas are seen within the periventricular white matte r. Cerebellum: Unremarkable. Mass effect: No evidence of midline shift. Intracranial vasculature: Atherosclerotic calcifications of the intracranial vessels. Soft tissues: Normal. Calvarium/osseous structures: No depressed skull fracture. Paranasal sinuses and mastoid air cells: The mastoid air cells are clear. Minimal mucosal thickening in the left sphenoid and left maxillary sinuses. Near complete opacification of the right maxillary s inus. Visualized orbits: Orbital contents are intact. IMPRESSION: 1. No acute intracranial process. 2. Nonspecific white matter changes, likely secondary to chronic small vessel ischemic disease. 3. Paranasal sinus disease with near complete opacification of the right maxillary sinus. [facility], , 12/22/2023 1:18 PM
[2023-12-22] MEDS: amLODIPine 5 MG TAB PO STA (13:47)
[2023-12-22 15:11] VITALS: BP 152/91; PULSE 62; RESP 16; TEMP 97.2
== END 2023-12-22 15:11 | disposition home or self-care (01) ==
LOC: EC 11:09
DX: I10 Essential (primary) hypertension (principal); Z87.891 Personal history of nicotine dependence; Z91.048 Other nonmedicinal substance allergy status
CPT/HCPCS: 36415; 70450; 71046; 80053; 83605; 84484; 85025; 85610; 85730; 93005; 99284